=== PATIENT | female | born 1980 | race Caucasian/White ===

== ENCOUNTER → 2016-12-07 | Outpatient (REF) | payer OTHER ==
[~2016-12-07] MED LIST: IBUP200T2 PO; OXYC-208 PO; TYLE-18 PO; ULTR50TA PO
== END ==
LOC: M LAB REF 13:08
PROVIDERS: ATTEND Advanced Practice Midwife
DX: Z12.4 Encounter for screening for malignant neoplasm of cervix (principal)

== ENCOUNTER → 2017-02-14 | Outpatient (REF) | payer OTHER | LOC: M LAB REF 16:22 | PROVIDERS: ATTEND Physician Assistant | DX: R30.0 Dysuria (principal) ==

== ENCOUNTER → 2017-11-15 | Outpatient (REF) | payer OTHER ==
[2017-11-15 12:10] LABS: HEMATOCRIT 40.3 % (36.0-47.0); MEAN CORPUSCULAR HGB CONC 34.7 g/dl (32.0-36.5); MEAN CORPUSCULAR VOLUME 92.2 fl (80.0-96.0); PLATELET COUNT, AUTOMATED 263 10^3/uL (150-450); RED BLOOD COUNT 4.37 10^6/uL (4.00-5.40); RED CELL DISTRIBUTION WIDTH 12.6 % (11.5-14.5); WHITE BLOOD COUNT 6.1 10^3/uL (4.0-10.0)
[2017-11-15 12:27] LABS: TOTAL 25(OH) VITAMIN D 11.7 NG/ML (30.0-100.0)
[2017-11-15 12:54] LABS: ALBUMIN 3.8 GM/DL (3.2-5.2); ALBUMIN/GLOBULIN RATIO 1.12 (1.00-1.93); ALKALINE PHOSPHATASE 82 U/L (45-117); ALT/SGPT 27 U/L (12-78); ANION GAP 8 MEQ/L (8-16); AST/SGOT 17 U/L (7-37); BILIRUBIN,TOTAL 0.5 MG/DL (0.2-1.0); BLOOD UREA NITROGEN 8 MG/DL (7-18); CALCIUM LEVEL 8.8 MG/DL (8.5-10.1); CARBON DIOXIDE LEVEL 28 MEQ/L (21-32); CHLORIDE LEVEL 109 MEQ/L (98-107); CHOLESTEROL LEVEL 159 MG/DL (<200); CHOLESTEROL RISK RATIO 3.382 (<5); CREATININE FOR GFR 0.81 MG/DL (0.55-1.30); GLOMERULAR FILTRATION RATE > 60.0 (>60); GLUCOSE, FASTING 101 MG/DL (70-100); HDL CHOLESTEROL 47 MG/DL (>40); NON-HDL-C 112 MG/DL; POTASSIUM SERUM 3.5 MEQ/L (3.5-5.1); SODIUM LEVEL 145 MEQ/L (136-145); TOTAL PROTEIN 7.2 GM/DL (6.4-8.2); TRIGLYCERIDES LEVEL 95 MG/DL (<150)
[2017-11-15 14:36] LABS: ESTIMATED AVERAGE GLUCOSE 85 MG/DL (60-110); HEMOGLOBIN A1c 4.6 %
== END ==
LOC: M LABDRAW1 08:25
DX: D64.9 Anemia, unspecified (principal); E03.9 Hypothyroidism, unspecified

== ENCOUNTER → 2018-01-25 | Outpatient (REF) | payer OTHER | LOC: M LAB REF 15:25 | DX: L02.811 Cutaneous abscess of head [any part, except face] (principal) ==

== ENCOUNTER → 2019-06-22 | Outpatient (REF) | payer OTHER | LOC: M LAB REF 13:53 | PROVIDERS: ATTEND Nurse Practitioner Family | DX: L03.113 Cellulitis of right upper limb (principal) ==

== ENCOUNTER → 2020-05-13 | Outpatient (CLI) | payer BC, OTHER ==
--- NOTE | 2020-05-27 15:26 | REP ---
INDICATION: PAIN IN RIGHT ANKLE AND JOINTS OF RIGHT FOOT. COMPARISON: None. TECHNIQUE: Four views. FINDINGS: Four views of the right ankle demonstrate intact ankle mortise. There is mild soft tissue swelling about the lateral malleolus. No fracture or subluxation is seen. IMPRESSION: Mild soft tissue swelling. No fracture noted <Electronically signed by Antonio Perez > 05/27/20 [id number]
--- NOTE | 2020-05-27 15:27 | REP ---
INDICATION: PAIN IN RIGHT ANKLE AND JOINTS OF RIGHT FOOT. Inversion injury. COMPARISON: None. TECHNIQUE: Four views. FINDINGS: Four views of the right foot demonstrate mild hallux valgus. Bones, joints and soft tissues are otherwise unremarkable.. No fracture or subluxation is seen. No opaque foreign body noted. IMPRESSION: Negative right foot series. <Electronically signed by Antonio Perez > 05/27/20 [id number]
== END ==
LOC: M ADAMS 11:34
PROVIDERS: ATTEND Nurse Practitioner Family
DX: M25.571 Pain in right ankle and joints of right foot (principal)

== ENCOUNTER 2020-08-28 14:19 | Emergency (ER) | payer BC, OTHER ==
[~2020-08-28] VITALS: Ht 162.6 cm; Wt 69.6 kg
--- OUTSIDE RECORDS SUMMARY | 2020-08-28 14:26 | CCD ---
Author Author [facility] Organization [facility] Address Unknown Phone Unavailable Care Team Providers Care Copy Operator Name Role Phone Dani Hernadez PA Unavailable Unavailable Scordo, M Radha PA Unavailable Unavailable Scordo, M Radha PA Unavailable Unavailable Scordo, M Radha PA Unavailable Unavailable Scordo, M Radha PA Unavailable Unavailable Scordo, M Radha PA Unavailable Unavailable Scordo, M Radha PA Unavailable Unavailable Scordo, M Radha PA Unavailable Unavailable Scordo, M Radha PA Unavailable Unavailable Scordo, M Radha PA Unavailable Unavailable Scordo, M Radha PA Unavailable Unavailable Scordo, M Radha PA Unavailable Unavailable Scordo, M Radha PA Unavailable Unavailable Scordo, M Radha PA Unavailable Unavailable Scordo, M Radha PA Unavailable Unavailable Scordo, M Radha PA Unavailable Unavailable Scordo, M Radha PA Unavailable Unavailable Scordo, M Radha PA Unavailable Unavailable Scordo, M Radha PA Unavailable Unavailable Scordo, M Radha PA Unavailable Unavailable Scordo, M Radha PA Unavailable Unavailable Scordo, M Radha PA Unavailable Unavailable Scordo, M Radha PA Unavailable Unavailable Scordo, M Radha PA Unavailable Unavailable Scordo, M Radha PA Unavailable Unavailable Scordo, M Radha PA Unavailable Unavailable Scordo, M Radha PA Unavailable Unavailable Scordo, M Radha PA Unavailable Unavailable Scordo, M Radha PA Unavailable Unavailable Scordo, M Radha PA Unavailable Unavailable Scordo, M Radha PA Unavailable Unavailable Scordo, M Radha PA Unavailable Unavailable Scordo, M Radha PA Unavailable Unavailable Scordo, M Radha PA Unavailable Unavailable Scordo, M Radha PA Unavailable Unavailable Scordo, M Radha PA Unavailable Unavailable Scordo, M Radha PA Unavailable Unavailable Scordo, M Radha PA Unavailable Unavailable Scordo, M Radha PA Unavailable Unavailable Scordo, M Radha PA Unavailable Unavailable Scordo, M Radha PA Unavailable Unavailable Scordo, M Radha PA Unavailable Unavailable RING, K JAMIE PA Unavailable Unavailable RING, K JAMIE PA Unavailable Unavailable RING, K JAMIE PA Unavailable Unavailable RING, K JAMIE PA Unavailable Unavailable RING, K JAMIE PA Unavailable Unavailable RING, K JAMIE PA Unavailable Unavailable RING, K JAMIE PA Unavailable Unavailable RING, K JAMIE PA Unavailable Unavailable RING, K JAMIE PA Unavailable Unavailable RING, K JAMIE PA Unavailable Unavailable RING, K JAMIE PA Unavailable Unavailable RING, K JAMIE PA Unavailable Unavailable RING, K JAMIE PA Unavailable Unavailable RING, K JAMIE PA Unavailable Unavailable RING, K JAMIE PA Unavailable Unavailable RING, K JAMIE PA Unavailable Unavailable RING, K JAMIE PA Unavailable Unavailable RING, K JAMIE PA Unavailable Unavailable RING, K JAMIE PA Unavailable Unavailable RING, K JAMIE PA Unavailable Unavailable RING, K JAMIE PA Unavailable Unavailable Rodriguez, Silvia ORGAN INSTALLER Unavailable Unavailable Rodriguez, Silvia ORGAN INSTALLER Unavailable Unavailable Rodriguez, Silvia ORGAN INSTALLER Unavailable Unavailable Rodriguez, Silvia ORGAN INSTALLER Unavailable Unavailable Rodriguez, Silvia ORGAN INSTALLER Unavailable Unavailable Rodriguez, Silvia ORGAN INSTALLER Unavailable Unavailable Rodriguez, Silvia ORGAN INSTALLER Unavailable Unavailable Rodriguez, Silvia ORGAN INSTALLER Unavailable Unavailable Rodriguez, Silvia ORGAN INSTALLER Unavailable Unavailable Rodriguez, Silvia ORGAN INSTALLER Unavailable Unavailable Rodriguez, Silvia ORGAN INSTALLER Unavailable Unavailable Re-disclosure Warning The records that you are about to access may contain information from federally-assisted alcohol or drug abuse programs. If such information is present, then the following federally mandated warning applies: This information has been disclosed to you from records protected by federal confidentiality rules (42 CFR part 2). The federal rules prohibit you from making any further disclosure of this information unless further disclosure is expressly permitted by the written consent of the person to whom it pertains or as otherwise permitted by 42 CFR part 2. A general authorization for the release of medical or other information is NOT sufficient for this purpose. The Federal rules restrict any use of the information to criminally investigate or prosecute any alcohol or drug abuse patient.The records that you are about to access may contain highly sensitive health information, the redisclosure of which is protected by Article 27-F of the [facility] Public Health law. If you continue you may have access to information: Regarding HIV / AIDS; Provided by facilities licensed or operated by the [facility] Office of Mental Health; or Provided by the [facility] Office for People With Developmental Disabilities. If such information is present, then the following [facility] mandated warning applies: This information has been disclosed to you from confidential records which are protected by state law. State law prohibits you from making any further disclosure of this information without the specific written consent of the person to whom it pertains, or as otherwise permitted by law. Any unauthorized further disclosure in violation of state law may result in a fine or mcc sentence or both. A general authorization for the release of medical or other information is NOT sufficient authorization for further disc losure. Family History Family Member Name Family Member Gender Family Member Status Date o f Status Description Data Source(s) Unknown Male Problem [facility] ([facility] Unknown Unknown Problem [facility] ([facility] bone mgm Unknown Unknown Problem [facility] ([facility] ) Unknown Female Encounters Encounter Providers Location Date Indications Data Source(s ) Outpatient Attender: Silvia Gibbons parker 05/13/2020 10:00:00 AM EDT [facility] ([facility] Outpatient Attender: JAMIE Salazar Primary 02/15/2020 12:15:00 PM EDT [facility] ([facility]) Outpatient Attender: Radha GO Main Office 11/07/2019 08:30:00 AM EDT [facility] ([facility] Outpatient Attender: Radha GO Main Office 09/17/2019 10:45:00 AM EST [facility] ([facility] Medications Medication Brand Name Start Date Product Form Dose Route Admi nistrative Instructions Pharmacy Instructions Status Indications Reaction Description Data Source(s) 20 mg 07/24/2020 12:00:00 AM EST tablet 90 TAKE ONE TABLET BY MOUTH THREE TIMES A DAY * MAXIMUM DAILY DOSE = 3 TAKE ONE TABLET BY MOUTH THREE TIMES A D AY * MAXIMUM DAILY DOSE = 3 SOLD: 07/24/2020 [facility] 20 mg 06/25/2020 12:00:00 AM EST tablet 90 TAKE ONE TABLET BY MOUTH THREE TIMES A DAY MAXIMUM DAILY DOSE = 3 TAKE ONE TABLET BY MOUTH THREE TIMES A D AY MAXIMUM DAILY DOSE = 3 SOLD: 06/25/2020 [facility] 20 mg 05/26/2020 12:00:00 AM EST tablet 90 TAKE ONE TABLET BY MOUTH THREE TIMES A DAY MAXIMUM DAILY DOSE = 3 TAKE ONE TABLET BY MOUTH THREE TIMES A D AY MAXIMUM DAILY DOSE = 3 SOLD: 05/26/2020 [facility] 20 mg 04/25/2020 12:00:00 AM EDT tablet 90 TAKE ONE TABLET BY MOUTH THREE TIMES A DAY MAXIMUM DAILY DOSE = 3 TAKE ONE TABLET BY MOUTH THREE TIMES A D AY MAXIMUM DAILY DOSE = 3 SOLD: 04/25/2020 [facility] 20 mg 03/28/2020 12:00:00 AM EDT tablet 90 TAKE ONE TABLET BY MOUTH THREE TIMES A DAY MAXIMUM DAILY DOSE = 3 TAKE ONE TABLET BY MOUTH THREE TIMES A D AY MAXIMUM DAILY DOSE = 3 SOLD: 03/28/2020 [facility] 20 mg 02/28/2020 12:00:00 AM EDT tablet 90 TAKE ONE TABLET BY MOUTH THREE TIMES A DAY MAXIMUM DAILY DOSE = 3 TAKE ONE TABLET BY MOUTH THREE TIMES A D AY MAXIMUM DAILY DOSE = 3 SOLD: 02/28/2020 [facility] Acetaminophen 325 MG / Hydrocodone Bitartrate 5 MG Ora l Tablet Hydrocodone-Acetaminophen 02/15/2020 12:00:00 AM EDT ORAL completed [facility] ([facility]) No Active Medications 02/15/2020 12:00:00 AM EDT completed [facility] ([facility]) 20 mg 01/30/2020 12:00:00 AM EDT tablet 90 TAKE ONE TABLET BY MOUTH THREE TIMES A DAY MAXIMUM DAILY DOSE = 3 TAKE ONE TABLET BY MOUTH THREE TIMES A D AY MAXIMUM DAILY DOSE = 3 SOLD: 01/30/2020 [facility] 20 mg 01/01/2020 12:00:00 AM EDT tablet 90 TAKE ONE TABLET BY MOUTH THREE TIMES A DAY MAXIMUM DAILY DOSE = 3 TAKE ONE TABLET BY MOUTH THREE TIMES A D AY MAXIMUM DAILY DOSE = 3 SOLD: 01/01/2020 [facility] 400 mg 12/03/2019 12:00:00 AM EDT capsule 180 TAKE ONE CAPSULE BY MOUTH TWICE A DAY TAKE ONE CAPSULE BY MOUTH TWICE A DAY SOLD: 12/04/2019 [facility] 20 mg 12/02/2019 12:00:00 AM EDT tablet 90 TAKE ONE TABLET BY MOUTH THREE TIMES A DAY MAXIMUM DAILY DOSE = 3 TAKE ONE TABLET BY MOUTH THREE TIMES A D AY MAXIMUM DAILY DOSE = 3 SOLD: 12/02/2019 [facility] 20 mg 10/29/2019 12:00:00 AM EDT tablet 90 TAKE 1 TABLET BY MOUTH THREE TIMES A DAY MAXIMUM DAILY DOSE = 3 TAKE 1 TABLET BY MOUTH THREE TIMES A DAY MAXIMUM DAILY DOSE = 3 SOLD: 10/29/2019 [facility] 400 mg 10/26/2019 12:00:00 AM EDT capsule 60 TAKE 1 CAPSULE BY MOUTH ONCE DAILY TAKE 1 CAPSULE BY MOUTH ONCE DAILY SOLD: 10/28/2019 [facility] 400 mg 10/01/2019 12:00:00 AM EDT capsule 60 TAKE ONE CAPSULE BY MOUTH TWICE A DAY TAKE ONE CAPSULE BY MOUTH TWICE A DAY SOLD: 10/04/2019 [facility] 20 mg 09/30/2019 12:00:00 AM EDT tablet 90 TAKE ONE TABLET BY MOUTH THREE TIMES A DAY MAXIMUM DAILY DOSE = 3 TAKE ONE TABLET BY MOUTH THREE TIMES A D AY MAXIMUM DAILY DOSE = 3 SOLD: 09/30/2019 [facility] gabapentin 600 MG Oral Tablet Gabapentin 09/17/2019 12:00:00 AM EST ORAL active [facility] ([facility] Amphetamine aspartate 5 MG / Amphetamine Sulfate 5 MG / Dextroamphetamine saccharate 5 MG / Dextroamphetamine Sulfate 5 MG Oral Tablet Amphetamine-Dextroamphetamine 09/17/2019 12:00:00 AM EST active [facility] ([facility] 7.5-325 mg 09/05/2019 12:00:00 AM EST tablet 120 TAKE ONE TABLET BY MOUTH EVERY 6 HOURS NEEDED FOR PAIN, MAXIMUM DAILY DOSE = 4 TAKE ONE TABLET BY MOUTH EVERY 6 HOURS NEEDED FOR PAIN, MAXIMUM DAILY DOSE = 4 SOLD: 09/08/2019 [facility] 600 mg 08/15/2019 12:00:00 AM EST tablet 60 TAKE ONE TABLET BY MOUTH TWICE A DAY TAKE ONE TABLET BY MOUTH TWICE A DAY SOLD: 08/15/2019 [facility] 20 mg 08/14/2019 12:00:00 AM EST tablet 90 TAKE 1 TABLET BY MOUTH THREE TIMES A DAY MAXIMUM DAILY DOSE = 3 TAKE 1 TABLET BY MOUTH THREE TIMES A DAY MAXIMUM DAILY DOSE = 3 SOLD: 08/15/2019 [facility] 7.5-325 mg 08/06/2019 12:00:00 AM EST tablet 120 TAKE ONE TABLET BY MOUTH EVERY 6 HOURS NEEDED FOR PAIN MAXIMUM DAILY DOSE = 4 TAKE ONE TABLET BY MOUTH EVERY 6 HOURS NEEDED FOR PAIN MAXIMUM DAILY DOSE = 4 SOLD: 08/06/2019 [facility] 20 mg 07/16/2019 12:00:00 AM EST tablet 90 TAKE ONE TABLET BY MOUTH THREE TIMES A DAY, MAXIMUM DAILY DOSE = 3 TAKE ONE TABLET BY MOUTH THREE TIMES A D AY, MAXIMUM DAILY DOSE = 3 SOLD: 07/16/2019 [facility] Insurance Providers Payer name Policy type / Coverage type Policy ID Covered democrat ID Covered democrat's relationship to klein Policy [place] Plan Information [facility] [id number] UNITED HEALTHCARE [id number] UNITED HE[employer]CARE O [id number] S [id number] [place] Plan P [id number] S [id number] Emp/United [employer] Commercial [id number] BCBS EMPIRE [id number] LP [id number] UNITED HEALTHCARE [id number] LP [id number] Emp/United [employer] Commercial [id number] Emp/United [employer] Commercial [id number] EMPIRE PLAN [facility] U [id number] Spouse [id number] Emp/[employer] Commercial [id number] EMPIRE BLUE CROSS BLUE SHIELD -O/P [id number] 01 [id number] BCBS EMPIRE [id number] LP [id number] UnitedHealthcare Other 0 Family Dependent Renny Michel 0 [place]/[employer] Commercial [id number] BCBS EMPIRE RESHMA DIV [id number] United Healthcare [place] Commercial [id number] UNITED HEALTHCARE [id number] UNHC COMMUNITY PLAN MCDHMO [id number] SP [id number] United [employer] [place] Health Maintenance Organization (HMO) [id number] Sponsored Dependent [id number] [place]/[employer] Commercial [id number] [place]/[employer] Commercial [id number] [facility] I [id number] Self [id number] UNITED HE[employer]CARE(MCAID) O [id number] S [id number] UNHC COMMUNITY PLAN MCDHMO [id number] SP [id number] HC COMMUNITY PLAN MCDHMO [id number] SP [id number] UNHC COMMUNITY PLAN MCDHMO [id number] SP [id number] [facility] MEDICAID [id number] Christy [id number] [facility] I [id number] Self [id number] [facility] Community Plan Health Maintenance Organization (HMO) Self [employer] Hmo Commercial Self UNITED HEALTHCARE(MCAID) P [id number] S [id number] HMO BLUE [id number] SP [id number] MEDICAID [id number] SP [id number] UNITED HEALTHCARE [id number] SP [id number] EMPIRE (STATE EMP) P [id number] S [id number] EMPIRE (STATE EMP) P UNAVAILABLE S UNAVAILABLE EXCELLUS BCBS P [id number] S [id number] Surgeries/Procedures Procedure Description Date Indications Data Source(s) INCISION & DRAINAGE ABSCESS SIMPLE/SINGLE 02/15/2020 1 2:00:00 AM EDT [facility] ([facility]) Social History Code Duration Value Status Description Data Source(s ) Smoking 05/13/2020 12:00:00 AM EDT Quit completed Quit [facility] ([facility]) Vital Signs ID Date Data Source UNK Name Value Range Interpretation Code Description Data Source(s) Body mass index (BMI) [Ratio] 27.5 kg/m2 27.5 k g/m2 [facility] ([facility]) Body height 64 [in_i] 64 [in_i] [facility] ([facility]) 5'4" Body weight 160.00 [lb_av] 160.00 [lb_av] MEDEN T ([facility]) Body temperature 97.6 [degF] 97.6 [degF] [facility] ([facility]) Oxygen saturation in Arterial blood by Pulse oximetry 97 % 97 % [facility] ([facility]) Respiratory rate 18 /min 18 /min [facility] ( [facility], [facility]) Heart rate 76 /min 76 /min [facility]) Diastolic blood pressure 66 mm[Hg] 66 mm[Hg] [facility] ([facility]) Systolic blood pressure 96 mm[Hg] 96 mm[Hg] M EDENT ([facility], [facility]) Body mass index (BMI) [Ratio] 27.5 kg/m2 27.5 k g/m2 [facility] ([facility]) Body height 64 [in_i] 64 [in_i] [facility] ([facility]) 5'4" Body weight 160.00 [lb_av] 160.00 [lb_av] MEDEN T ([facility], [facility]) Body temperature 98.2 [degF] 98.2 [degF] [facility] ([facility]) Oxygen saturation in Arterial blood by Pulse oximetry 98 % 98 % [facility] ([facility]) Respiratory rate 16 /min 16 /min [facility] ( [facility]) Heart rate 84 /min 84 /min [facility]) Diastolic blood pressure 73 mm[Hg] 73 mm[Hg] [facility] ([facility]) Systolic blood pressure 107 mm[Hg] 107 mm[Hg] M EDENT ([facility]) Body mass index (BMI) [Ratio] 26.5 kg/m2 26.5 k g/m2 [facility] ([facility] Oxygen saturation in Arterial blood by Pulse oximetry 97 % 97 % [facility] ([facility] Body weight 148.25 [lb_av] 148.25 [lb_av] MEDEN T ([facility] Body height 62.75 [in_i] 62.75 [in_i] [facility] ([facility] 5'2.75" Respiratory rate 14 /min 14 /min [facility] ( [facility] Body temperature 98.0 [degF] 98.0 [degF] [facility] ([facility] Heart rate 94 /min 94 /min [facility] ([facility] Diastolic blood pressure 63 mm[Hg] 63 mm[Hg] [facility] ([facility] Systolic blood pressure 104 mm[Hg] 104 mm[Hg] M EDENT ([facility]
[2020-08-28] MEDS ORDERED: GABA600T4 PO (14:27)
[2020-08-28] MEDS ORDERED: ADDE20CA3 PO (14:27)
[2020-08-28] MEDS ORDERED: NAPR250T4 PO (14:27)
[2020-08-28] MEDS ORDERED: HYDR-3713 PO (14:43)
[2020-08-28] MEDS ORDERED: AUGM875T28 PO (14:43)
[2020-08-28 14:55] VITALS: BP 134/89
--- OUTSIDE RECORDS SUMMARY | 2020-08-28 15:10 | CCD ---
Author Author [facility] Organization [facility] Address Unknown Phone Unavailable Care Team Providers Care Application Packager Name Role Phone Dani Hernadez PA Unavailable [...] K JAMIE PA Unavailable Unavailable Rodriguez, Silvia DIRECTOR WORKERS COMPENSATION Unavailable Unavailable Rodriguez, Silvia DIRECTOR WORKERS COMPENSATION Unavailable Unavailable Rodriguez, Silvia DIRECTOR WORKERS COMPENSATION Unavailable Unavailable Rodriguez, Silvia DIRECTOR WORKERS COMPENSATION Unavailable Unavailable Rodriguez, Silvia DIRECTOR WORKERS COMPENSATION Unavailable Unavailable Rodriguez, Silvia DIRECTOR WORKERS COMPENSATION Unavailable Unavailable Rodriguez, Silvia DIRECTOR WORKERS COMPENSATION Unavailable Unavailable Rodriguez, Silvia DIRECTOR WORKERS COMPENSATION Unavailable Unavailable Rodriguez, Silvia DIRECTOR WORKERS COMPENSATION Unavailable Unavailable Rodriguez, Silvia DIRECTOR WORKERS COMPENSATION Unavailable Unavailable Ordriguez, Silvia DIRECTOR WORKERS COMPENSATION Unavailable Unavailable Re-disclosure Warning The records that [...] is protected by Article 27-F of the [facility] Public Health law. If you continue you may have access to information: Regarding HIV / AIDS; Provided by facilities licensed or operated by the [facility] Office of Mental Health; or Provided by the [facility] Office for People With Developmental Disabilities. If such information is present, then the following [facility] mandated warning applies: This information has been [...] law may result in a fine or care home sentence or both. A general authorization for the release of medical or other information is NOT sufficient authorization for further disc losure. Family History Family Member Name Family Member Gender Family Member Status Date o f Status Description Data Source(s) Unknown Male Problem MED[facility] ([facility] Unknown Unknown Problem [facility] ([facility] bone mgm Unknown Unknown Problem [facility] ([facility] Unknown Female Encounters Encounter Providers Location Date Indications Data Source(s ) Outpatient Attender: Silvia canales 05/13/2020 10:00:00 AM EDT [facility] ([facility], [facility]) Outpatient Attender: JAMIE Salazar [facility] 02/15/2020 12:15:00 PM EDT [facility] ([facility], [facility]) Outpatient Attender: Radha GO Main Office [...] 02/15/2020 12:00:00 AM EDT ORAL completed MED[facility] ([facility], [facility]) No Active Medications 02/15/2020 12:00:00 AM EDT completed MEDENT ([facility]) 20 mg 01/30/2020 12:00:00 AM EDT tablet [...] type / Coverage type Policy ID Covered alliance party ID Covered alliance party's relationship to klein Policy Klein Plan Information [facility] [id number] [facility] [id number] [facility] O [id number] S [id number] Alpha Plan P [id number] S [id number] [facility] Commercial [id number] BCBS EMPIRE [id number] LP [id number] [employer] [id number] LP [id number] Emp/[employer] Commercial [id number] Emp/[employer] Commercial [id number] EMPIRE PLAN [facility] U [id number] Spouse [id number] Emp/[employer] Commercial [id number] EMPIRE BLUE CROSS BLUE SHIELD -O/P [id number] 01 [id number] BCBS EMPIRE [id number] LP [id number] [employer] Other 0 Family Dependent Renny Michel 0 Alpha/[employer] Commercial [id number] BCBS EMPIRE RESHMA DIV [id number] [employer] Alpha Commercial [id number] [employer] [id number] UNHC COMMUNITY PLAN MCDHMO [id number] SP [id number] [employer] Alpha Health Maintenance Organization (HMO) [id number] Sponsored Dependent [id number] Alpha/[employer] Commercial [id number] Alpha/[employer] Commercial [id number] [facility] I [id number] Self [id number] [employer](MCAID) O [id number] S [id number] UNHC COMMUNITY PLAN MCDHMO [id number] SP [id number] HC COMMUNITY PLAN MCDHMO [id number] SP [id number] UNHC COMMUNITY PLAN MCDHMO [id number] SP [id number] [facility] MEDICAID [id number] Christy [id number] [facility] I [id number] Self [id number] [facility] Community Plan Health Maintenance Organization (HMO) Self [employer] Hmo Commercial Self [employer](MCAID) P [id number] S [id number] HMO BLUE [id number] SP [id number] MEDICAID [id number] SP [id number] [employer] [id number] SP [id number] EMPIRE (STATE EMP) P [id number] S [id number] EMPIRE (STATE EMP) P UNAVAILABLE S UNAVAILABLE EXCELLUS BCBS P [id number] S [id number] Surgeries/Procedures Procedure Description Date Indications Data Source(s) INCISION & DRAINAGE ABSCESS SIMPLE/SINGLE 02/15/2020 1 2:00:00 AM EDT MED[facility] ([facility], [facility]) Social History Code Duration Value Status Description Data Source(s ) Smoking 05/13/2020 12:00:00 AM EDT Quit completed Quit MED[facility] ([facility], [facility]) Vital Signs ID Date Data Source UNK Name Value Range Interpretation Code Description Data Source(s) Body mass index (BMI) [Ratio] 27.5 kg/m2 27.5 k g/m2 MED[facility] ([facility], [facility]) Body height 64 [in_i] 64 [in_i] MEDENT ([facility], [facility]) 5'4" Body weight 160.00 [lb_av] 160.00 [lb_av] MEDEN T ([facility], [facility]) Body temperature 97.6 [degF] 97.6 [degF] MEDENT ([facility], [facility]) Oxygen saturation in Arterial blood by Pulse oximetry 97 % 97 % MEDENT ([facility], [facility]) Respiratory rate 18 /min 18 /min MED[facility] ( [facility], [facility]) Heart rate 76 /min 76 /min MEDENT ([facility], [facility]) Diastolic blood pressure 66 mm[Hg] 66 mm[Hg] MEDENT ([facility], [facility]) Systolic blood pressure 96 mm[Hg] 96 mm[Hg] M EDENT ([facility], [facility]) Body mass index (BMI) [Ratio] 27.5 kg/m2 27.5 k g/m2 MED[facility] ([facility], [facility]) Body height 64 [in_i] 64 [in_i] MEDENT ([facility], [facility]) 5'4" Body weight 160.00 [lb_av] 160.00 [lb_av] MEDEN T ([facility], [facility]) Body temperature 98.2 [degF] 98.2 [degF] MEDENT ([facility], [facility]) Oxygen saturation in Arterial blood by Pulse oximetry 98 % 98 % MED[facility] ([facility], [facility]) Respiratory rate 16 /min 16 /min MED[facility] ( [facility], [facility]) Heart rate 84 /min 84 /min MED[facility] ([facility], [facility]) Diastolic blood pressure 73 mm[Hg] 73 mm[Hg] MEDENT ([facility]) Systolic blood pressure 107 mm[Hg] 107 mm[Hg] M EDENT ([facility]) Body mass index (BMI) [Ratio] 26.5 kg/m2 [...]
== END 2020-08-28 15:01 | disposition home or self-care (01) ==
LOC: M ED 14:19
DX: K08.89 Other specified disorders of teeth and supporting structures (principal); K02.9 Dental caries, unspecified

== ENCOUNTER 2022-01-20 10:57 | Emergency (ER) | payer BC, OTHER ==
[~2022-01-20] VITALS: Ht 162.6 cm; Wt 65.1 kg
[~2022-01-20 10:57] MED LIST changes: +ADDE20CA3 PO; +AUGM875T28 PO; +GABA600T4 PO; +HYDR-3713 PO; +NAPR-849 PO
[2022-01-20] MEDS ORDERED: EXCETAB32 PO (11:44)
[2022-01-20] MEDS ORDERED: ISOVUE-370 76% 100ML VIAL As Ordered ONE (14:35)
[2022-01-20] MEDS ORDERED: KETOROLAC 60MG 2ML VIAL IM ONE (15:05)
[2022-01-20 16:22] VITALS: BP 115/51
== END 2022-01-20 16:23 | disposition home or self-care (01) ==
LOC: M ED 10:57
DX: S02.2XXA Fracture of nasal bones, initial encounter for closed fracture (principal); R23.3 Spontaneous ecchymoses; Y04.8XXA Assault by other bodily force, initial encounter; Y07.03 Male partner, perpetrator of maltreatment and neglect; H91.91 Unspecified hearing loss, right ear; Z96.21 Cochlear implant status; Z88.8 Allergy status to other drugs, medicaments and biological substances
CPT/HCPCS: 36415; 70450; 70486; 70491; 71250; 72125; 80047; 84702; 96372; 99284; J1885; Q9967

== ENCOUNTER → 2022-02-14 | Outpatient (CLI) | payer BC, OTHER ==
[~2022-02-14] MED LIST changes: +EXCETAB32 PO
[2022-02-14 09:19] LABS: HEMATOCRIT 40.6 % (36.0-47.0); HEMOGLOBIN 13.6 g/dl (12.0-15.5); MEAN CORPUSCULAR HGB CONC 33.5 g/dl (32.0-36.5); MEAN CORPUSCULAR VOLUME 95.5 fl (80.0-96.0); PLATELET COUNT, AUTOMATED 269 10^3/uL (150-450); RED BLOOD COUNT 4.25 10^6/uL (4.00-5.40); WHITE BLOOD COUNT 5.6 10^3/uL (4.0-10.0)
[2022-02-14 09:49] LABS: ALBUMIN 3.3 GM/DL (3.2-5.2); ALT/SGPT 16 U/L (12-78); BILIRUBIN,TOTAL 0.3 MG/DL (0.2-1.0); BLOOD UREA NITROGEN 9 MG/DL (7-18); CALCIUM LEVEL 9.3 MG/DL (8.5-10.1); CARBON DIOXIDE LEVEL 27 MEQ/L (21-32); CHLORIDE LEVEL 112 MEQ/L (98-107); CHOLESTEROL LEVEL 182 MG/DL (<200); CREATININE FOR GFR 0.68 MG/DL (0.55-1.30); GLOMERULAR FILTRATION RATE > 60.0 (>58); GLUCOSE, FASTING 99 MG/DL (70-100); HDL CHOLESTEROL 56 MG/DL (>40); LDL CHOLESTEROL 111 MG/DL (<100); NON-HDL-C 126 MG/DL; POTASSIUM SERUM 4.7 MEQ/L (3.5-5.1); SODIUM LEVEL 143 MEQ/L (136-145); THYROID STIMULATING HORMONE 0.877 uIU/ML (0.358-3.740); TOTAL PROTEIN 6.2 GM/DL (6.4-8.2); TRIGLYCERIDES LEVEL 73 MG/DL (<150)
[2022-02-14 10:36] LABS: TOTAL 25(OH) VITAMIN D 17.2 NG/ML (30.0-100.0)
[2022-02-14 10:43] LABS: HEMOGLOBIN A1c 4.9 %
== END ==
LOC: M LAB 08:24
PROVIDERS: ATTEND Family Medicine
DX: D64.9 Anemia, unspecified (principal); R53.83 Other fatigue; E03.9 Hypothyroidism, unspecified

== ENCOUNTER → 2023-02-14 | Outpatient (CLI) | payer BC, OTHER ==
[2023-02-14 10:44] LABS: HEMATOCRIT 42.5 % (36.0-47.0); HEMOGLOBIN 13.8 g/dl (12.0-15.5); MEAN CORPUSCULAR HEMOGLOBIN 30.9 pg (27.0-33.0); MEAN CORPUSCULAR HGB CONC 32.5 g/dl (32.0-36.5); MEAN CORPUSCULAR VOLUME 95.1 fl (80.0-96.0); PLATELET COUNT, AUTOMATED 349 10^3/uL (150-450); RED BLOOD COUNT 4.47 10^6/uL (4.00-5.40); WHITE BLOOD COUNT 5.8 10^3/uL (4.0-10.0)
[2023-02-14 11:25] LABS: ALBUMIN 3.6 G/DL (3.2-5.2); ALKALINE PHOSPHATASE 82 U/L (46-116); ALT/SGPT 18 U/L (7.0-40); AST/SGOT 13 U/L (<34); BILIRUBIN,TOTAL 0.6 MG/DL (0.3-1.2); BLOOD UREA NITROGEN 9 MG/DL (9-23); CALCIUM LEVEL 9.4 MG/DL (8.5-10.1); CARBON DIOXIDE LEVEL 28 MMOL/L (20-31); CHLORIDE LEVEL 108 MMOL/L (98-107); CHOLESTEROL LEVEL 199 MG/DL (<200); CHOLESTEROL RISK RATIO 3.16 (<5); CREATININE FOR GFR 0.66 MG/DL (0.55-1.30); GLOMERULAR FILTRATION RATE > 60.0 (>58); GLUCOSE, FASTING 94 MG/DL (60-100); HDL CHOLESTEROL 62.9 MG/DL (>40); LDL CHOLESTEROL 119.3 MG/DL (<100); NON-HDL-C 136.1 MG/DL; POTASSIUM SERUM 4.3 MMOL/L (3.5-5.1); SODIUM LEVEL 142 MMOL/L (136-145); THYROID STIMULATING HORMONE 0.303 uIU/ML (0.55-4.78); TOTAL 25(OH) VITAMIN D 61.4 NG/ML (20.0-100.0); TOTAL PROTEIN 6.7 G/DL (5.7-8.2); TRIGLYCERIDES LEVEL 84 MG/DL (<150)
== END ==
LOC: M LAB 09:54
PROVIDERS: ATTEND Family Medicine
DX: I10 Essential (primary) hypertension (principal); R53.83 Other fatigue; E03.9 Hypothyroidism, unspecified

== ENCOUNTER → 2024-07-29 | Outpatient (REF) ==
[~2024-07-29] MED LIST changes: +GABA-1490 PO; -GABA600T4 PO
== END ==
LOC: M LAB 12:13
PROVIDERS: ATTEND Family Medicine
DX: Z00.00 Encounter for general adult medical examination without abnormal findings (principal)